=== PATIENT | female | born 1950 | race Caucasian/White ===

== ENCOUNTER 2025-04-23 07:13 | Day surgery (SDC) | payer MEDICARE, SELFPAY ==
--- OUTSIDE RECORDS SUMMARY | 2025-03-30 16:01 | XMS_ITS | Encounter Summary ---
Author Organization [facility] Address [address] [place] [address] Care Team Providers Care Port Engineer Name Role Phone Narcisa Cook MD Primary Care Provider Encounter Details Date Type Department Care Team (Late st Contact Info) Description 02/28/2018 Scanned Document [address] [phone] Narcisa Cook MD [address] [place] [id number] Social History Tobacco Use Types Packs/Day Years Used Date Smoking Tobacco: Never Smokeless Tobacco: Never Comments:caffeine use/ 1 cup of coffee daily, 1 cup of tea, occasional chocolate Alcohol Use Standard Drinks/Week Comments Yes 0 (1 standard drink = 0.6 oz pure alcohol) alcohol use/ rare intake of alcohol Comments No Sex and Gender Information Value Date Recorded Sex Assigned at Not on file Legal Sex Female 5:27 PM EDT Gender Identity Not on file Sexual Orientation Not on file documented as of this encounter Plan of Treatment Not on file documented as of this encounter Visit Diagnoses Not on filedocumented in this encounter Care Teams Port Engineer Relationship Specialty Start Date End Date Narcisa Cook MD [address] [place] [id number] PCP - General 08/15/15 08/12/19 documented as of this encounter
--- OUTSIDE RECORDS SUMMARY | 2025-03-30 16:01 | XMS_ITS | Encounter Summary ---
Author Organization [facility] Address [address] [place] [address] Care Team Providers Care Educational Guidance Counselor Name Role Phone Narcisa Cook MD Primary Care Provider [phone] Encounter Details Date Type Department Care Team (Late st Contact Info) Description 08/20/2017 Scanned Document [address] [phone] Narcisa Cook MD [address] [place] [id number] Social History Tobacco Use Types Packs/Day Years Used Date Smoking Tobacco: Never Comments:caffeine use/ 1 cup of [...] on filedocumented in this encounter Care Teams Educational Guidance Counselor Relationship Specialty [place] [address] [place] [id number] PCP - General 08/15/15 08/12/19 documented as of this encounter
--- OUTSIDE RECORDS SUMMARY | 2025-03-30 16:01 | XMS_ITS | Clinical Summary ---
Author Organization [facility] Address [address] [place] [address] Care Team Providers Care Roof Truss Machine Tender Name Role Phone Unavailable Primary Care Provider Unavailabl e Allergies Active Allergy Reactions Criticality Noted Date Comments Nitrofurantoin Swelling Medium 08/27/2015 Penicillins Rash/Dermatitis,Swelling Medium 08/27/2015 Sulfa Antibiotics Rash/Dermatitis Low 08/27/2015 Medications Multiple Vitamins-Minerals (MULTIVITAMINS) Chew Tab Multivitamins TABS ; Start Date: ; End Date: Active Vitamin D3 (CHOLECALICEROL) 2000 UNITS tablet Vitamin D3 2000 UNIT Oral Capsule ; Start Date: ; End Date: Active atorvastatin (LIPITOR) 10 MG tabletIndications: Hyperlipidemia, unspecified hyperlipidemia type TAKE 1 TABLET EVERY DAY 330 tablet 02/19/20 18 Active glucose blood test stripIndications:T ype 2 diabetes mellitus without complication, unspecified regional intermodal truck driver insulin use status Test blood sugar 3 times per week 100 each 1 03/26/20 18 Active naproxen (NAPROSYN) 500 MG tablet 06/23/20 18 Active atorvastatin (LIPITOR) 10 MG tabletIndications: Hyperlipidemia, unspecified hyperlipidemia type TAKE 1 TABLET BY MOUTH DAILY 90 tablet 1 11/11/20 18 Active citalopram (CeleXA) 20 MG tabletIndications: Anxiety state TAKE 1 TABLET BY MOUTH DAILY 90 tablet 1 11/11/20 18 Active metFORMIN (GLUCOPHAGE) 500 MG tabletIndications: Type 2 diabetes mellitus without complication, without long-term current use of insulin (HCC) TAKE 1 TABLET BY MOUTH TWO TIMES DAILY WITH MEALS 180 tablet 1 11/11/20 18 Active ALPRAZolam (XANAX) 0.5 MG tabletIndications: Anxiety state Take 1 tablet (0.5 mg total) by mouth 3 times daily (every 8 hours) as needed for anxiety. 30 tablet 12/23/19 19 Active Active Problems Problem Noted Date Diagnosed Date Type 2 diabetes mellitus without complication Assessment & Plan (01/07/2018 2:03 PM EST): DM follow up Griselda Valencia Comes in today for a DM follow up appointment. She has been checking her sugar 3 times per week(s) Home blood sugar records: fasting range: 120-140 Any episodes of hypoglycemia? no Griselda is compliant with her medications. Assessment & Plan (03/14/2017 10:50 AM EDT): DM follow up Griselda Valencia Comes in today for a DM follow up appointment. She has been checking her sugar 3 times per week(s) Home blood sugar records: fasting range: 103-110 Any episodes of hypoglycemia? no Griselda is compliant with her medications. Assessment & Plan (11/08/2016 10:22 AM EST): About 6 weeks ago started on metformin by jessie, and worked up to 2000 mg a day, checking sugar about 3x week and getting 90s . Has really worked on diet and now feels wierd and like her sugar is too low, and it was 70. 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 Hyperlipidemia 03/13/2014 Assessment & Plan (11/08/2016 10:23 AM EST): About a month ago was started on Crestor BiPAP, the insurance would not cover it and so therefore she switch to atorvastatin which she is absolutely tolerating Sleep apnea 03/13/2014 Assessment & Plan (01/07/2018 2:03 PM EST): Has dental appliance Immunizations Immunization Administration Dates Next Due H1N1 Inj 12/19/2009 Influenza (AFLURIA/FLUZONE) Inactivated/Split Quadrivalent with Preservative IM 09/06/2017 Influenza Inactivated/Split Preservative Free IM 09/27/2016,08/30/2015,09/06/2014,09/02,09/16/2012,08/29/2011,08/10/2010 ,08/29/2009,08/31/2008,09/04/2007 Pneumococcal Conjugate 13-Valent 01/07/2018 Pneumococcal Polysaccharide 23-Valent 01/22/2019 TD Preservative Free 01/03/2007 Tdap 09/27/2016 Zoster Vaccine Live/Attenuat ed (Zostavax) 03/20/2013 Family History Medical History Relation Name Comments Thyroid cancer Brother Colon cancer Father Hyperlipidemia Mother Hypertension Mother essential Macular degeneration Mother Relation Name Status Comments Brother Father Mother Social History Tobacco Use Types Packs/Day Years [...] on file Sexual Orientation Not on file Last Filed Vital Signs Vital Sign Reading Time Taken Comments Blood Pressure 144/73 01/22/2019 9:47 AM EST Pulse 79 01/22/2019 9:47 AM EST Temperature 36.6 ??C (97.9 ??F) 01/22/2019 9:47 AM ES T Respiratory Rate 16 01/22/2019 9:47 AM EST Oxygen Saturation - - Inhaled Oxygen Concentration - - Weight 69.4 kg (153 lb) 01/22/2019 9:47 AM EST Height 160 cm (5' 3 ) 01/22/2019 9:47 AM EST Body Mass Index 27.1 01/22/2019 9:47 AM EST Plan of Treatment Health Maintenance Due Date Last Done Comments Zoster (Shingles) Vaccine (2 of 3) 05/15/2013 03/20/2013 Hemoglobin A1C 07/19/2019 01/19/2019, 08/0 06/2018, 12/28/2017, Additional history exists Ophthalmology Exam 10/30/2019 10/30/2018 (P reviously Completed), 10/04/2017 (Previously Completed) Mammogram 11/18/2019 11/18/2018, 11/02, 11/13/2016, Additional history exists Foot Exam 01/15/2020 01/15/2019, 05/2018 (Previously Completed) Creatinine with GFR 01/19/2020 01/19/2019, 06/12/2018, 09/15/2016, Additional history exists Lipid Panel 01/19/2020 01/19/2019, 12/03, 09/15/2016, Additional history exists Microalbumin/Creatinine Ratio Urine 01/19/2020 01/19/2019, 12/28/2017, 09/27/2016 Colonoscopy 07/02/2020 07/02/2015 DXA Bone Density (Females,Ages 65 and older) 01/24/2021 01/24/2018 Influenza Vaccine 07/02/2024 09/06/2017, , 08/30/2015, Additional history exists COVID-19 Vaccine ( - 2023- season) 2024 DTaP/Tdap/Td Vaccines (2 - Td or Tdap) 09/27/2026 09/27/2016, 01/03/2007 RSV Vaccine 60 years and older and Patients (1 - 1-dose 75+ series) 2027 Hepatitis C Virus Screening Completed 04/06/2014 Pneumococcal Vaccines 50+ Completed 01/22/2019, 05/2018 Hepatitis B Vaccines Aged Out No long er eligible based on patient's age to complete this topic Procedures Procedure Name Priority Date/Time Associated Diagnosis Comments MICROALBUMIN, CREATININE, URINE, RANDOM Routine 01/19/2019 8:10 AM EST Type 2 diabetes mellitus without complication, without long-term current use of insulin (HCC) Other hyperlipidemia Vitamin D deficiency Benign hypertension HEMOGLOBIN A1C Routine 01/19/2019 8:10 AM EST Type 2 diabetes mellitus without complication, without long-term current use of insulin (HCC) Other hyperlipidemia Vitamin D deficiency Benign hypertension LIPID PANEL REFLEX DIRECT LDL Routine 01/19/2019 8:10 AM EST Type 2 diabetes mellitus without complication, without long-term current use of insulin (HCC) Other hyperlipidemia Vitamin D deficiency Benign hypertension COMPREHENSIVE METABOLIC PANEL Routine 01/19/2019 8:10 AM EST Type 2 diabetes mellitus without complication, without long-term current use of insulin (HCC) Other hyperlipidemia Vitamin D deficiency Benign hypertension MM MAMMOGRAM SCREENING-BILATERAL Routine 11/18/2018 9:47 AM EST DEXA BONE DENSITY HIP/PELVIS/SPINE W/FX EVAL Routine 01/24/2018 5:33 PM EST Menopause HEPATITIS C VIRUS (HCV) ANTIBODY Routine 04/06/2014 12:00 AM EDT from Last 3 Months or Most Recently Relevant to Health Maintenance Results * (ABNORMAL) Lipid Panel Reflex Direct LDL ([facility]) (01/19/2019 8:10 AM EST) Cholesterol, Total 156 <200 mg/dL [facility] Cholesterol, HDL 37(L) >50 mg/dL [facility] Triglycerides 120 <150 mg/dL [facility] LDL Cholesterol 97 mg/dL (calc) [facility] Comment: Reference range: <100 Desirable range <100 mg/dL for primary prevention; ?? <70 mg/dL for patients with CHD or diabetic patients with > or = 2 CHD risk factors. LDL-C is now calculated using the Syed-Julian calculation, which is a validated novel method providing better accuracy than the Friedewald equation in the estimation of LDL-C. Syed SS et al. CARLO. 2013;310(19): 8324-0586 (http://education.Securens.Genomatica/faq/UBC161) Cholesterol/HDL Ratio 4.2 <5.0 (calc) [facility] Non HDL Chol. (LDL+VLDL) 119 <130 mg/dL (calc) [facility] Comment: For patients with diabetes plus 1 major ASCVD risk factor, treating to a non-HDL-C goal of <100 mg/dL (LDL-C of <70 mg/dL) is considered a therapeutic option. Blood specimen (specimen) 01/19/2019 8:10 AM EST 01/19/2019 8:11 AM EST Narrative [facility] - 01/20/2019 1:17 PM EST FASTING:YES FASTING: YES Resulting Agency Comment Performing Organization Information: ?Site ID: [id number] ?Name: [facility] [employer] ?Address: [address] [place] [address], [place] [address] ?Director: Gold Krishnamurthy MD us Jessie Woodson APRN LAB BLOOD ORDERABLES Final Resu lt [facility] [address] [place] [address], [place] [address] * Microalbumin, Creatinine, Urine, Random (01/19/2019 8:10 AM EST) Creatinine, Urine, Random 110 20 - 275 mg/dL [facility] Microalbumin, Urine, Random 0.5 See Note: mg/dL [facility] Comment: Reference Range: Reference Range Not established Microalbumin/Creat inine Ratio 5 <30 mcg/mg creat [facility] Comment: The ADA defines abnormalities in albumin excretion as follows: Category ? Result (mcg/mg creatinine) Normal ?<30 Microalbuminuria ? 30-299 Clinical albuminuria ?? > OR = 300 The ADA recommends that at least two of three specimens collected within a 3-6 month period be abnormal before considering a patient to be within a diagnostic category. Urine 01/19/2019 8:10 AM EST 01/19/2019 8:11 AM EST Narrative [facility] - 01/20/2019 1:17 PM EST FASTING:YES FASTING: YES Resulting Agency Comment Performing Organization Information: ?Site ID: [id number] ?Name: [employer] ?Address: [address] [place] [address], [place] [address] ?Director: Gold Krishnamurthy MD us Jessie Woodson APRN URINE ORDERABLES Final Result Performing Organization Address [facility] de Phone Number [facility] [address] [address] * (ABNORMAL) Hemoglobin A1c (01/19/2019 8:10 AM EST) Hemoglobin A1C 7.1(H) <5.7 % of total Hgb [facility] Comment: For someone without known diabetes, a hemoglobin A1c value of 6.5% or greater indicates that they may have diabetes and this should be confirmed with a follow-up test. For someone with known diabetes, a value <7% indicates that their diabetes is well controlled and a value greater than or equal to 7% indicates suboptimal control. A1c targets should be individualized based on duration of diabetes, age, comorbid conditions, and other considerations. Currently, no consensus exists regarding use of hemoglobin A1c for diagnosis of diabetes for children. ?? Blood specimen (specimen) Blood specimen / Unknown 01/19/2019 8:10 AM EST 01/19/2019 8:11 AM EST Narrative [facility] - 01/20/2019 1:17 PM EST FASTING:YES FASTING: YES Resulting Agency Comment Performing Organization Information: ?Site ID: [id number] ?Name: [facility] [employer] ?Address: [address] [place] [id number] ?Director: Gold Krishnamurthy MD Jessie Woodson APRN LAB BLOOD ORDERABLES Final Resu lt Performing Organization Address [facility] Co de Phone Number [facility] [address], [place] [address] * (ABNORMAL) Comprehensive Metabolic Panel (01/19/2019 8:10 AM EST) Glucose 132(H) 65 - 99 mg/dL [facility] Comment: ? Fasting reference interval For someone without known diabetes, a glucose value >125 mg/dL indicates that they may have diabetes and this should be confirmed with a follow-up test. Blood Urea Nitrogen (BUN) 15 7 - 25 mg/dL [facility] Creatinine 0.62 0.50 - 0.99 mg/dL [facility] Comment: For patients >49 years of age, the reference limit for Creatinine is approximately 13% higher for people identified as -Tuvaluan. eGFR Non- 94 > OR = 60 mL/min/1 .73m2 [facility] eGFR 109 > OR = 60 mL/min/1 .73m2 [facility] BUN/Creatinine Ratio NOT APPLICABLE 6 - 22 (calc) [facility] Sodium 139 135 - 146 mmol/L [facility] Potassium 4.2 3.5 - 5.3 mmol/L [facility] Chloride 103 98 - 110 mmol/L [facility] CO2 28 20 - 32 mmol/L [facility] Calcium 9.6 8.6 - 10.4 mg/dL [facility] Protein, Total 6.9 6.1 - 8.1 g/dL [facility] Albumin 4.5 3.6 - 5.1 g/dL [facility] Globulin 2.4 1.9 - 3.7 g/dL (calc) [facility] Albumin/Globulin Ratio 1.9 1.0 - 2.5 (calc) [facility] Bilirubin, Total 0.6 0.2 - 1.2 mg/dL [facility] Alkaline Phosphatase 82 33 - 130 U/L [facility] Aspartate Aminotrans (AST) 15 10 - 35 U/L [facility] Alanine Aminotrans (ALT) 14 6 - 29 U/L [facility] Blood specimen (specimen) Blood specimen / Unknown 01/19/2019 8:10 AM EST 01/19/2019 8:11 AM EST Narrative [facility] - 01/20/2019 1:17 PM EST FASTING:YES FASTING: YES Resulting Agency Comment Performing Organization Information: ?Site ID: [id number] ?Name: [facility] [employer] [employer] ?Address: [address] [place] [address], [place] [address] ?Director: Gold Krishnamurthy MD us Jessie Woodson APRN LAB BLOOD ORDERABLES Final Resu lt [facility] [address] [facility] 3rd Floor, [place] [address] * MM Mammogram screening-Bilateral (11/18/2018 9:47 AM EST) Anatomical Region Laterality Modality Breast Bilateral Mammography 11/14/2018 7:00 AM EST 11/14/2018 7:00 AM EST Impressions 11/18/2018 9:47 AM EST There is no mammographic evidence of malignancy. Routine follow-up mammogram in 1 year is recommended. The patient will receive a lay summary of the results of this breast imaging exam. Lay summaries for mammography examinations will also identify the patients personal breast tissue composition as required by state law. BIRADS Category 1: Negative Thank you for referring your patient to us, Violetta Harris MD [phone] (Electronically Signed - 11/18/2018 09:47) Copy: INÉS EMERY MD [facility]-[address] [address] Narrative 11/18/2018 9:47 AM EST HISTORY: Patient is 68 years old and is seen for screening. The patient has no personal history of breast or ovarian cancer. The patient has no family history of breast cancer. FILMS COMPARED: The present examination has been compared to prior imaging studies dated 11/13/2017 and 11/12/2016. MAMMOGRAM FINDINGS: The following digital mammographic views were obtained: bilateral craniocaudal, bilateral mediolateral oblique. There are scattered fibroglandular densities. (ACR BIRADS density Category b) * No suspicious masses, calcifications or other abnormalities are seen in either breast. ??There are no significant changes from the prior study. Computer-aided detection was utilized by the radiologist in the interpretation of this examination. Procedure Note Violetta Harris MD - 11/18/2018 HISTORY: Patient is 68 years old and is seen for screening. The patient has no personal history of breast or ovarian cancer. The patient has no family history of breast cancer. FILMS COMPARED: The present examination has been compared to prior imaging studies dated101/14/2017 and 11/12/2016. MAMMOGRAM FINDINGS: The following digital mammographic views were obtained: bilateralcraniocaudal, bilateral mediolateral oblique. There are scattered fibroglandular densities. (ACR BIRADS density Categoryb) * No suspicious masses, calcifications or other abnormalities are seen ineither breast. There are no significant changes from the prior study. Computer-aided detection was utilized by the radiologist in theinterpretation of this examination. IMPRESSION: There is no mammographic evidence of malignancy. Routine follow-up mammogram in 1 year is recommended. The patient will receive a lay summary of the results of this breastimaging exam. Lay summaries for mammography examinations will alsoidentify the patients personal breast tissue composition as required [facility] law. BIRADS Category 1: Negative Thank you for referring your patient to us, Violetta Harris MD [phone] (Electronically Signed - 11/18/2018 09:47) Copy: INÉS EMERY MD [address] [address] us Generic Provider IMG MAMMOGRAPHY ORDERABLES [place] l Result * DEXA Bone density-Hip/pelvis/spine w/fx eval (01/24/2018 5:33 PM EST) Anatomical Region Laterality Modality Digital Radiogra phy 01/23/2018 11:0 0 AM EST 01/23/2018 11:00 AM EST Impressions 01/24/2018 5:33 PM EST 1. DIAGNOSIS: Osteopenia based on the lowest T-score value of -1.9 in the femoral neck applying World Health Organization criteria. 2. 10-YEAR FRACTURE RISK PREDICTION, FRAX: Major osteoporotic fracture (clinical spine, forearm, hip or shoulder) 10.4%. Hip fracture 1.5%. RECOMMENDATIONS: 1. Treatment Recommendations: NOF guidelines recommend consideration for treatment in postmenopausal women and men age 50 and older presenting with the following: -A hip or vertebral (clinical or morphometric) fracture. -T-score less than or equal to -2.5 at the femoral neck or spine after appropriate evaluation to exclude secondary causes. -Low bone mass at the hip or spine and a 10-year fracture probability by FRAX of greater than or equal to 3% for hip fracture or greater than or equal to 20% for major osteoporotic fracture based on the [place] adapted WHO algorithm. 2. Other Recommendations: All treatment decisions require clinical judgment and consideration of individual patient factors, including patient preferences, comorbidities, previous drug use, risk factors not captured in the FRAX model (e.g. frailty, falls, vitamin D deficiency, increased bone turnover, interval significant decline in bone density) and possible under or overestimation of fracture risk by FRAX. 3. Future Scan Recommendation: People with diagnosed cases of osteoporosis or at high risk for fracture should have regular bone mineral density tests. For patients eligible for Medicare, routine testing is allowed once every 2 years. The testing frequency can be increased to one year for patients who have rapidly progressing disease, those who are receiving or discontinuing medical therapy to restore bone mass, or have additional risk factors. Thank you for referring your patient to us, Eyal Garcia MD [phone] (Electronically Signed - 01/24/2018 17:33) Narrative 01/24/2018 5:33 PM EST EXAMINATION: BONE DENSITOMETRY CLINICAL INDICATION: Asymptomatic menopausal state. COMPARISON: Previous BD dated 10/09/2014 and baseline BD dated 02/05/2008. TECHNIQUE: Dual-energy x-ray absorptiometry was performed of the lumbar spine and left hip. The images are of good technical quality. Summary results are attached. FINDINGS: AP SPINE L1-L4: Current: BMD 1.050 g/cm2, Z-score 0.4, T-score -1.2, osteopenia, 1.3% increase from previous, 0.3% decrease from baseline (<5% change is not significant). Prior: BMD 1.037 g/cm2. Baseline: BMD 1.053 g/cm2. LEFT FEMUR, NECK: Current: BMD 0.768 g/cm2, Z-score -0.5, T-score -1.9, osteopenia. Prior: BMD 0.762 g/cm2. Baseline: BMD 0.834 g/cm2. LEFT FEMUR, TOTAL: Current: BMD 0.791 g/cm2, Z-score -0.5, T-score -1.7, osteopenia, 4.8% decrease from previous, 7.8% decrease from baseline (<5% change is not significant). Prior: BMD 0.831 g/cm2. Baseline: BMD 0.858 g/cm2. IDENTIFIED RISK FACTORS: Menopause. HISTORY OF FRACTURE: None listed. MEDICATIONS: Calcium supplement or multivitamin. Vitamin D. Procedure Note Eyal Garcia MD - 01/24/2018 EXAMINATION: BONE DENSITOMETRY CLINICAL INDICATION: Asymptomatic menopausal state. COMPARISON: Previous BD dated 10/09/2014 and baseline BD dated 02/05/2008. TECHNIQUE: Dual-energy x-ray absorptiometry was performed of the lumbar spine andleft hip. The images are of good technical quality. Summary results areattached. FINDINGS: AP SPINE L1-L4: Current: BMD 1.050 g/cm2, Z-score 0.4, T-score -1.2, osteopenia, 1.3% increase from previous, 0.3% decrease from baseline (<5% change is not significant). Prior: BMD 1.037 g/cm2. Baseline: BMD 1.053 g/cm2. LEFT FEMUR, NECK: Current: BMD 0.768 g/cm2, Z-score -0.5, T-score -1.9, osteopenia. Prior: BMD 0.762 g/cm2. Baseline: BMD 0.834 g/cm2. LEFT FEMUR, TOTAL: Current: BMD 0.791 g/cm2, Z-score -0.5, T-score -1.7, osteopenia, 4.8% decrease from previous, 7.8% decrease from baseline (<5% change is not significant). Prior: BMD 0.831 g/cm2. Baseline: BMD 0.858 g/cm2. IDENTIFIED RISK FACTORS: Menopause. HISTORY OF FRACTURE: None listed. MEDICATIONS: Calcium supplement or multivitamin. Vitamin D. IMPRESSION: 1. DIAGNOSIS: Osteopenia based on the lowest T-score value of -1.9 inthe femoral neck applying World Health Organization criteria. 2. 10-YEAR FRACTURE RISK PREDICTION, FRAX: Major osteoporotic fracture (clinical spine, forearm, hip or shoulder) 10.4%. Hip fracture 1.5%. RECOMMENDATIONS: 1. Treatment Recommendations: NOF guidelines recommend consideration for treatment in postmenopausal women and men age 50 and older presentingwith the following: -A hip or vertebral (clinical or morphometric) fracture. -T-score less than or equal to -2.5 at the femoral neck or spine after appropriate evaluation to exclude secondary causes. -Low bone mass at the hip or spine and a 10-year fracture probability byFRAX of greater than or equal to 3% for hip fracture or greater than or equalto 20% for major osteoporotic fracture based on the [place] adapted WHOalgorithm. 2. Other Recommendations: All treatment decisions require clinicaljudgment and consideration of individual patient factors, including patient preferences, comorbidities, previous drug use, risk factors not capturedin the FRAX model (e.g. frailty, falls, vitamin D deficiency, increasedbone turnover, interval significant decline in bone density) and possible underor overestimation of fracture risk by FRAX. 3. Future Scan Recommendation: People with diagnosed cases of osteoporosisor at high risk for fracture should have regular bone mineral density tests.For patients eligible for Medicare, routine testing is allowed once every 2 years. The testing frequency can be increased to one year for patientswho have rapidly progressing disease, those who are receiving ordiscontinuing medical therapy to restore bone mass, or have additional risk factors. Thank you for referring your patient to us, Eyal Garcia MD [phone] (Electronically Signed - 01/24/2018 17:33) Inés Emery MD IMG DXA ORDERABLES Final Res ult * Hepatitis C Antibody (04/06/2014 12:00 AM EDT) Hepatitis C Antibody 0.07 0.00 - 0.79 S/[facility] CONVERSION Comment:NONREACTIVE 04/06/2014 Inés Emery MD LAB BLOOD ORDERABLES Final R esult [facility] CONVERSION from Last 3 Months or Most Recently Relevant to Health Maintenance Insurance [facility] MEDICARE
--- OUTSIDE RECORDS SUMMARY | 2025-03-30 16:01 | XMS_ITS | Encounter Summary ---
Author Organization [facility] Address [address] [place] [address] Care Team Providers Care Dietary Server Name Role Phone Narcisa Cook MD Primary Care Provider [phone] Encounter Details Date Type Department Care Team (Late st Contact Info) Description 03/31/2018 Scanned Document [address] [phone] Provider, Generic Social History Tobacco Use Types Packs/Day Years [...] on filedocumented in this encounter Care Teams Dietary Server Relationship Specialty Start Date End Date Narcisa Cook MD [address] [place] [phone] PCP - General 08/15/15 08/12/19 documented as of this encounter
--- OUTSIDE RECORDS SUMMARY | 2025-03-30 16:01 | XMS_ITS | Encounter Summary ---
Author Organization [facility] Address [address] [place] [address] Care Team Providers Care Piece Cutter Name Role Phone Narcisa Cook MD Primary Care Provider Encounter Details Date Type Department Care Team (Late st Contact Info) Description 06/03/2018 Scanned Document [address] [phone] Narcisa Cook MD [address] [place] [address] [phone] Social History Tobacco Use Types Packs/Day Years [...] on filedocumented in this encounter Care Teams Piece Cutter Relationship Specialty Start Date End Date Narcisa Cook MD [address] [place] [address] PCP - General 08/15/15 08/12/19 documented as of this encounter
--- OUTSIDE RECORDS SUMMARY | 2025-03-30 16:01 | XMS_ITS | Encounter Summary ---
Author Organization [facility] Address [address] [facility] [address] [place] [address] Phone Care Team Providers Care Director Global Name Role Phone Jennifer Sherwood MD Primary Care Provider + Sophie Noble MD Primary Care Provider Encounter Details Date Type Department Care Team (Late st Contact Info) Description 01/12/2021 Procedure Pass [address] [place] [address] Social History Tobacco Use Types Packs/Day Years Used Date Smoking Tobacco: Never Assessed Sex and Gender Information Value Date Recorded Sex Assigned at Not on file Gender Identity Not on file Sexual Orientation Not on file documented as of this encounter Plan of Treatment Not on file documented as of this encounter Visit Diagnoses Not on filedocumented in this encounter Care Teams Director Global Relationship Specialty Start Date End Date Jennifer Sherwood MD [address] [place] [address] PCP - General Family Medicine 08/17/19 01/18/21 Sophie Noble MD [address] [place] [address] PCP - General Family Medicine 01/19/21 documented as of this encounter Additional Source Comments The information contained in this document represents components of the legal health record. It is not the complete legal health record.[facility]
--- OUTSIDE RECORDS SUMMARY | 2025-03-30 16:01 | XMS_ITS | Encounter Summary ---
Author Organization [facility] Address [address] [address] Phone Care Team Providers Care Equities Trader Name Role Phone Jennifer Sherwood MD Primary Care Provider + Sophie Noble MD Primary Care Provider Encounter Details Date Type Department Care Team (Late st Contact Info) Description 08/24/2019 Ancillary Orders [facility],Outside Imaging [address] [place] [address] System, Provider Not In, [facility] [address] [address] Social History Tobacco Use Types Packs/Day Years Used Date Smoking Tobacco: Never Assessed Sex and Gender Information Value Date Recorded Sex Assigned at Not on file Gender Identity Not on file Sexual Orientation Not on file documented as of this encounter Plan of Treatment Not on file documented as of this encounter Results * Mammogram Outside (No Interpretation) (10/24/2015 12:00 AM EST) Narrative SYSTEMGENERATED, DOCUMENTATION - 08/24/2019 10:45 AM EDT This study is for PACS storage only and not for interpretation. Provider Not In System PhD IMG OUTSIDE I MAGING W/OUT INTERPRETATION documented in this encounter Visit Diagnoses Not on filedocumented in this encounter Care Teams Equities Trader Relationship Specialty Start Date End Date Jennifer Sherwood MD [address] [place] [address] [email or web address] PCP - General Family Medicine 08/17/19 01/18/21 Sophie Noble MD [address] [place] [address] PCP - General Family Medicine 01/19/21 documented as of this encounter Additional Source Comments The information contained in this document represents components of the legal health record. It is not the complete legal health record.[facility]
--- OUTSIDE RECORDS SUMMARY | 2025-03-30 16:01 | XMS_ITS | Encounter Summary ---
Author Organization [facility] Address [address] [place] [address] Care Team Providers Care Cleaner Laboratory Equipment Name Role Phone Narcisa Cook MD Primary Care Provider [phone] Encounter Details Date Type Department Care Team (Late st Contact Info) Description 04/14/2018 Scanned Document [address] [phone] Provider, Generic Social History Tobacco Use Types [...] on filedocumented in this encounter Care Teams Cleaner Laboratory Equipment Relationship Specialty Start Date End Date Narcisa Cook MD [address] [place] [address] [phone] PCP - General 08/15/15 08/12/19 documented as of this encounter
--- OUTSIDE RECORDS SUMMARY | 2025-03-30 16:01 | XMS_ITS | Encounter Summary ---
Author Organization [facility] Address [address] [place] [address] Care Team Providers Care Linux Network Administrator Name Role Phone Narcisa Cook MD Primary Care Provider Encounter Details Date Type Department Care Team (Late st Contact Info) Description 10/29/2018 Scanned Document [address] [phone] Provider, Generic Social History Tobacco Use Types [...] on filedocumented in this encounter Care Teams Linux Network Administrator Relationship Specialty Start Date End Date Narcisa Cook MD [address] [place] [address] [phone] PCP - General 08/15/15 08/12/19 documented as of this encounter
--- OUTSIDE RECORDS SUMMARY | 2025-03-30 16:01 | XMS_ITS | Encounter Summary ---
Author Organization [facility] Address [address] [place] [address] Care Team Providers Care Rn Heart Name Role Phone Narcisa Cook MD Primary Care Provider Encounter Details Date Type Department Care Team (Late st Contact Info) Description 10/30/2016 Scanned Document [address] [phone] Provider, Generic Social History Tobacco Use Types [...] on filedocumented in this encounter Care Teams Rn Heart Relationship Specialty Start Date End Date Narcisa Cook MD [address] [place] [address] PCP - General 08/15/15 08/12/19 documented as of this encounter
--- OUTSIDE RECORDS SUMMARY | 2025-03-30 16:01 | XMS_ITS | Encounter Summary ---
Author Organization [facility] Address [address] [place] [address] Care Team Providers Care Counter Checker Name Role Phone Narcisa Cook MD Primary Care Provider [phone] Reason for Visit * Reason Comments Medication Refill Encounter Details Date Type Department Care Team (Late st Contact Info) Description 11/11/[address] [phone] Narcisa Cook MD [address] [place] [address] Hyperlipidemia, unspecified hyperlipidemia type; Anxiety state; Type 2 diabetes mellitus without complication, without long-term current use of insulin (HCC) Social History Tobacco Use Types Packs/Day Years [...] documented as of this encounter Visit Diagnoses Diagnosis Hyperlipidemia, unspecified hyperlipidemia type Anxiety state Anxiety state, unspecified Type 2 diabetes mellitus without complication, without long-term current use of insulin (HCC) documented in this encounter Care Teams Counter Checker Relationship Specialty Start Date End Date Narcisa Cook MD [address] [place] [address] PCP - General 08/15/15 08/12/19 documented as of this encounter
--- OUTSIDE RECORDS SUMMARY | 2025-03-30 16:01 | XMS_ITS | Encounter Summary ---
Author Organization [facility] Address [address] [facility] [address] [place] [address] Phone Care Team Providers Care Weight Yardage Checker Name Role Phone Jennifer Sherwood MD Primary Care Provider + Sophie Noble MD Primary Care Provider Encounter Details Date Type Department Care Team (Late st Contact Info) Description 08/14/2019 Ancillary Orders Virtual Department [address] [place] [address] Cheryl Orozco PA [address] [place] [address] Visit for screening mammogram Social History Tobacco Use Types Packs/Day Years Used Date Smoking Tobacco: Never Assessed Sex and Gender Information Value Date Recorded Sex Assigned at Not on file Gender Identity Not on file Sexual Orientation Not on file documented as of this encounter Plan of Treatment Not on file documented as of this encounter Results * BI MAMMOGRAM SCREENING WITH TOMOSYNTHESIS WITH CAD (BILATERAL) (10/26/2019 9:11 AM EST) Anatomical Region Laterality Modality Breast Left, Breast Right, Breast Bilateral Bila teral Mammography 10/26/2019 5:52 PM EST Impressions 10/26/2019 5:56 PM EST BILATERAL BREASTS: Negative, no evidence of malignancy. Normal interval follow- up is recommended in 12 months. Bi-RADS: BI-RADS CATEGORY: 1 - Negative. DENSITY: ??There are scattered fibroglandular densities. POS - CDHMAMA Narrative 10/26/2019 5:56 PM EST STUDY: Bilateral screening mammography with tomosynthesis and CAD TECHNIQUE: Bilateral full-field digital screening mammography is obtained and read in conjunction with computer-aided detection. ??Tomosynthesis as well as 2-D C view imaging were obtained. ?? COMPARISON: Comparison made to multiple prior, most recent November 14, 2018, and most remote October 04, 2014. BREAST COMPOSITION: There are scattered areas ??of ??fibroglandular density BILATERAL BREASTS: No significant masses, calcifications or other abnormalities are seen. Procedure Note She Velásquez MD - 10/26/2019 STUDY: Bilateral screening mammography with tomosynthesis and CAD TECHNIQUE: Bilateral full-field digital screening mammography is obtainedand read in conjunction with computer-aided detection. Tomosynthesis aswell as 2-D C view imaging were obtained. COMPARISON: Comparison made to multiple prior, most recent November, and most remote October 04, 2014. BREAST COMPOSITION: There are scattered areas of fibroglandulardensity BILATERAL BREASTS: No significant masses, calcifications or otherabnormalities are seen. IMPRESSION: BILATERAL BREASTS: Negative, no evidence of malignancy. Normal intervalfollow-up is recommended in 12 months. Bi-RADS: BI-RADS CATEGORY: 1 - Negative. DENSITY: There are scattered fibroglandular densities. POS - CDHMAMA Cheryl PEARSON IMG MG EXAMS documented in this encounter Visit Diagnoses Diagnosis Visit for screening mammogram Visit for screening mammogram documented in this encounter Care Teams Weight Yardage Checker Relationship Specialty Start Date End Date Jennifer Sherwood MD [address] [place] [phone] PCP - General Family Medicine 08/17/19 01/18/21 Sophie Noble MD [address] [place] [address] PCP - General Family Medicine 01/19/21 documented as of this encounter Additional Source Comments The information contained in this document represents components of the legal health record. It is not the complete legal health record.[facility]
--- OUTSIDE RECORDS SUMMARY | 2025-03-30 16:01 | XMS_ITS | Encounter Summary ---
Author Organization [facility] Address [address] [facility] [address] [place] [address] Phone Care Team Providers Care Cleaner Touch Up Worker Name Role Phone Jennifer Sherwood MD Primary Care Provider + Sophie Noble MD Primary Care Provider Encounter Details Date Type Department Care Team (Late st Contact Info) Description 01/12/2021 Ancillary Orders Virtual Department [address] [place] [address] Sophie Noble MD [address] [place] [address] Breast screening Social History Tobacco Use Types Packs/Day Years Used Date Smoking Tobacco: Never Assessed Sex and Gender Information Value Date Recorded Sex Assigned at Not on file Gender Identity Not on file Sexual Orientation Not on file documented as of this encounter Plan of Treatment Not on file documented as of this encounter Results * BI MAMMOGRAM SCREENING WITH TOMOSYNTHESIS WITH CAD (BILATERAL) (01/19/2021 10:58 AM EST) Anatomical Region Laterality Modality Breast Left, Breast Right, Breast Bilateral Bila teral Mammography 01/19/2021 11:3 1 AM EST Impressions 01/19/2021 11:33 AM EST No findings suspicious for malignancy are identified. In the absence of a worrisome palpable abnormality, annual screening mammography is recommended. BI-RADS CATEGORY: ??1 - Negative. DENSITY: ??There are scattered fibroglandular densities. Narrative 01/19/2021 11:33 AM EST COMPARISON: 10/04/2014 through 10/26/2019 Bilateral 3-D tomosynthesis with 2-D reconstructions in the CC and MLO projection. ??Computer-aided detection system also utilized. No new mass, asymmetry, architectural distortion or suspicious calcifications have become apparent on either side. Procedure Note Wander Fletcher MD - 01/19/2021 COMPARISON: 10/04/2014 through 10/26/2019 Bilateral 3-D tomosynthesis with 2-D reconstructions in the CC and MLOprojection. Computer-aided detection system also utilized. No new mass, asymmetry, architectural distortion or suspiciouscalcifications have become apparent on either side. IMPRESSION: No findings suspicious for malignancy are identified. In the absence of aworrisome palpable abnormality, annual screening mammography isrecommended. BI-RADS CATEGORY: 1 - Negative. DENSITY: There are scattered fibroglandular densities. Sophie Noble MD IMG MG EXAMS documented in this encounter Visit Diagnoses Diagnosis Breast screening Breast screening, unspecified Breast screening Breast screening, unspecified documented in this encounter Care Teams Cleaner Touch Up Worker Relationship Specialty Start Date End Date Jennifer Sherwood MD [address] [place] [address] [email or web address] PCP - General Family Medicine 08/17/19 01/18/21 Sophie Noble MD [address] [place] [address] PCP - General Family Medicine 01/19/21 documented as of this encounter Additional Source Comments The information contained in this document represents components of the legal health record. It is not the complete legal health record.[facility]
--- OUTSIDE RECORDS SUMMARY | 2025-03-30 16:01 | XMS_ITS | Encounter Summary ---
Author Organization [facility] Address [address] [address] Phone Care Team Providers Care Cryptologic Technician Operator/Analyst Name Role Phone Jennifer Sherwood MD Primary Care Provider + Sophie Noble MD Primary Care Provider Encounter Details Date Type Department Care Team (Late st Contact Info) Description 08/24/2019 Ancillary Orders [facility],Outside Imaging [address] [place] [address] System, Provider Not In, PhD Partners [address] [address] Social History Tobacco Use Types Packs/Day Years Used Date Smoking Tobacco: Never Assessed Sex and Gender Information Value Date Recorded Sex Assigned at Not on file Gender Identity Not on file Sexual Orientation Not on file documented as of this encounter Plan of Treatment Not on file documented as of this encounter Results * Mammogram Outside (No Interpretation) (10/04/2014 12:00 AM EST) Narrative SYSTEMGENERATED, DOCUMENTATION - 08/24/2019 10:46 AM EDT This study is for PACS storage only and not for interpretation. Provider Not In System PhD IMG OUTSIDE I MAGING W/OUT INTERPRETATION documented in this encounter Visit Diagnoses Not on filedocumented in this encounter Care Teams Cryptologic Technician Operator/Analyst Relationship Specialty Start Date End Date Jennifer Sherwood MD [address] [place] [address] [email or web address] PCP - General Family Medicine 08/17/19 01/18/21 Sophie Noble MD [address] [place] [address] PCP - General Family Medicine 01/19/21 documented as of this encounter Additional Source Comments The information contained in this document represents components of the legal health record. It is not the complete legal health record.[facility]
--- OUTSIDE RECORDS SUMMARY | 2025-03-30 16:01 | XMS_ITS | Encounter Summary ---
Author Organization [facility] Address [address] [address] Phone Care Team Providers Care Administrative Processor Name Role Phone Jennifer Sherwood MD Primary Care Provider + Sophie Noble MD Primary Care Provider Encounter Details Date Type Department Care Team (Late st Contact Info) Description 08/24/2019 Ancillary Orders [facility],Outside Imaging [address] [place] [address] System, Provider Not In, PhD Partners [address] [address] Social History Tobacco Use Types Packs/Day Years Used Date Smoking Tobacco: Never Assessed Sex and Gender Information Value Date Recorded Sex Assigned at Not on file Gender Identity Not on file Sexual Orientation Not on file documented as of this encounter Plan of Treatment Not on file documented as of this encounter Results * Mammogram Outside (No Interpretation) (11/12/2016 12:00 AM EST) Narrative SYSTEMGENERATED, DOCUMENTATION - 08/24/2019 10:44 AM EDT This study is for PACS storage only and not for interpretation. Provider Not In System PhD IMG OUTSIDE I MAGING W/OUT INTERPRETATION documented in this encounter Visit Diagnoses Not on filedocumented in this encounter Care Teams Administrative Processor Relationship Specialty Start Date End Date Jennifer Sherwood MD [address] [place] [address] [email or web address] PCP - General Family Medicine 08/17/19 01/18/21 Sophie Noble MD [address] [place] [address] PCP - General Family Medicine 01/19/21 documented as of this encounter Additional Source Comments The information contained in this document represents components of the legal health record. It is not the complete legal health record.[facility]
--- OUTSIDE RECORDS SUMMARY | 2025-03-30 16:01 | XMS_ITS | Encounter Summary ---
Author Organization [facility] Address [address] [place] [address] Care Team Providers Care Rn Shift Mgr Name Role Phone Narcisa Cook MD Primary Care Provider [phone] Reason for Visit * Reason Comments Medication Refill Encounter Details Date Type Department Care Team (Late st Contact Info) Description 02/14/[address] [phone] Narcisa Cook MD [address] [place] [phone] Anxiety state Social History Tobacco Use Types Packs/Day Years [...] as of this encounter Visit Diagnoses Diagnosis Anxiety state Anxiety state, unspecified documented in this encounter Care Teams Rn Shift Mgr Relationship Specialty Start Date End Date Narcisa Cook MD [address] [place] [address] PCP - General 08/15/15 08/12/19 documented as of this encounter
--- OUTSIDE RECORDS SUMMARY | 2025-03-30 16:01 | XMS_ITS | Encounter Summary ---
Author Organization [facility] Address [address] [place] [address] Care Team Providers Care Epic Cupid Analyst Name Role Phone Narcisa Cook MD Primary Care Provider [phone] Encounter Details Date Type Department Care Team (Late st Contact Info) Description 10/14/2017 Scanned Document [address] [phone] Provider, Generic Social History Tobacco Use Types [...] on filedocumented in this encounter Care Teams Epic Cupid Analyst Relationship Specialty Start Date End Date Narcisa Cook MD [address] [place] [phone] PCP - General 08/15/15 08/12/19 documented as of this encounter
--- OUTSIDE RECORDS SUMMARY | 2025-03-30 16:01 | XMS_ITS | Encounter Summary ---
Author Organization [facility] Address [address] [place] [address] Care Team Providers Care Cattle Examiner Name Role Phone Narcisa Cook MD Primary Care Provider [phone] Encounter Details Date Type Department Care Team (Late st Contact Info) Description 08/18/2017 Scanned Document [address] [phone] Narcisa Cook MD [address] [place] [address] Social History Tobacco Use Types Packs/Day Years [...] on filedocumented in this encounter Care Teams Cattle Examiner Relationship Specialty [place] [address] [place] [address] PCP - General 08/15/15 08/12/19 documented as of this encounter
--- OUTSIDE RECORDS SUMMARY | 2025-03-30 16:01 | XMS_ITS | Encounter Summary ---
Author Organization [facility] Address [address] [place] [address] Care Team Providers Care Scouring Train Operator Name Role Phone Narcisa Cook MD Primary Care Provider Reason for Visit * Reason Onset Date Comments Form 08/18/2017 Encounter Details Date Type Department Care Team (Late st Contact Info) Description 08/18/[address] [phone] Narcisa Cook MD [address] [place] [address] [phone] Form Social History Tobacco Use Types Packs/Day Years [...] on file documented as of this encounter Miscellaneous Notes * Telephone Encounter - Mary Alvarenga MA - 08/28/2017 10:31 AM EDT tct pt states she did not received form that was mailed previously, will mail form again. * Telephone Encounter - Ana Lilia Hunt - 08/27/2017 5:20 PM EDT Patient is calling to find out the status of the form. Please call pt back at [phone]. * Telephone Encounter - Mary Alvarenga MA - 08/19/2017 2:[address] in [address] cook's bin for completion. * Telephone Encounter - Ana Lilia Hunt - 08/18/2017 10:26 AM EDT Patient dropped off Physician Activity Recommendations/Medical Clearance Form. Scanned blank copy into media and put in [place] bin. Please call pt when this is all set at [phone] and mail a copy to her at: [address] [place] [address] documented in this encounter Plan of Treatment Not on file documented as of this encounter Visit Diagnoses Not on filedocumented in this encounter Care Teams Scouring Train Operator Relationship Specialty Start Date End Date Narcisa Cook MD [address] [place] [address] PCP - General 08/15/15 08/12/19 documented as of this encounter
--- OUTSIDE RECORDS SUMMARY | 2025-03-30 16:01 | XMS_ITS | Encounter Summary ---
Author Organization [facility] Address [address] [address] Phone Care Team Providers Care Certified Medicine Aide Name Role Phone Jennifer Sherwood MD Primary Care Provider + Sophie Noble MD Primary Care Provider Encounter Details Date Type Department Care Team (Late st Contact Info) Description 08/24/2019 Ancillary Orders [facility],Outside Imaging [address] [place] [address] System, Provider Not In, PhD Partners [address] [address] Social History Tobacco Use Types Packs/Day Years Used Date Smoking Tobacco: Never Assessed Sex and Gender Information Value Date Recorded Sex Assigned at Not on file Gender Identity Not on file Sexual Orientation Not on file documented as of this encounter Plan of Treatment Not on file documented as of this encounter Results * Mammogram Outside (No Interpretation) (11/14/2018 12:00 AM EST) Narrative SYSTEMGENERATED, DOCUMENTATION - 08/24/2019 10:42 AM EDT This study is for PACS storage only and not for interpretation. Provider Not In System PhD IMG OUTSIDE I MAGING W/OUT INTERPRETATION documented in this encounter Visit Diagnoses Not on filedocumented in this encounter Care Teams Certified Medicine Aide Relationship Specialty Start Date End Date Jennifer Sherwood MD [address] [place] [address] [email or web address] PCP - General Family Medicine 08/17/19 01/18/21 Sophie Noble MD [address] [place] [address] PCP - General Family Medicine 01/19/21 documented as of this encounter Additional Source Comments The information contained in this document represents components of the legal health record. It is not the complete legal health record.[facility]
--- OUTSIDE RECORDS SUMMARY | 2025-03-30 16:01 | XMS_ITS | Clinical Summary ---
Author Organization [facility] Address [address] [place] [phone] Phone Care Team Providers Care Charge Weigher Name Role Phone Sophie Noble MD Primary Care Provider Family History Medical History Relation Comments Breast cancer Sister HALF SISTER/SAME MOM Relation Status Comments Sister Social History Tobacco Use Types Packs/Day Years Used Date Smoking Tobacco: Never Assessed Education Answer Date Recorded Are you interested in more education? Not on paul e 03/29/2023 Are you concerned about learning? Not on file 03/29/2023 No 03/29/2023 No 03/29/2023 Digital Access Answer Date Recorded No 04/30/2023 No 04/30/2023 No 04/30/2023 Reliable internet access at home? Not on file 04/30/2023 Device with a working camera? Not on file Sex and Gender Information Value Date Recorded Sex Assigned at Not on file Gender Identity Not on file Sexual Orientation Not on file Plan of Treatment Not on file Medical Devices Not on file Care Teams Charge Weigher Relationship Specialty Start Date End Date Sophie Noble MD [address] [place] [phone] PCP - General Family Medicine 01/19/21 Additional Source Comments The information contained in this document represents components of the legal health record. It is not the complete legal health record.[facility]
--- OUTSIDE RECORDS SUMMARY | 2025-03-30 16:01 | XMS_ITS ---
Author Name 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 ProblemAct [facility] Vitamin D deficiency active 2014-04-06 ProblemAct [facility] Hyperlipidemia active 2014-03-13 ProblemAct [facility] Type 2 diabetes mellitus without complication active 2015-08-30 ProblemAct [facility] Anxiety state active 2014-03-13 ProblemAct [facility] Sleep apnea active 2014-03-13 ProblemAct [facility] Depressive disorder active 2014-03-13 ProblemAct [facility] Immunizations Vaccine Date Source Lot Number Status Pneumococcal Conjugate 13-Valent 01/07/2018 [facility] [id number] completed Influenza (AFLURIA/FLUZONE) Inactivated/Split Quadrivalent with Preservative IM 09/06/2017 [facility] completed Influenza Inactivated/Split Preservative Free IM 09/27/2016 [facility] [id number] completed Tdap 09/27/2016 [facility] [id number] completed Influenza Inactivated/Split Preservative Free IM 08/30/2015 [facility] [id number] completed Influenza Inactivated/Split Preservative Free IM 09/06/2014 [facility] [id number] completed Influenza Inactivated/Split Preservative Free IM 09/02/2013 [facility] [id number] completed Zoster Vaccine Live/Attenuated (Zostavax) 03/20/2013 [facility] [id number] completed Influenza Inactivated/Split Preservative Free IM 09/16/2012 [facility] [id number] completed Influenza Inactivated/Split Preservative Free IM 08/29/2011 [facility] [id number] completed Influenza Inactivated/Split Preservative Free IM 08/10/2010 [facility] [id number] completed H1N1 Inj 12/19/2009 [facility] [id number] completed Influenza Inactivated/Split Preservative Free IM 08/29/2009 [facility] [id number] completed Influenza Inactivated/Split Preservative Free IM 08/31/2008 [facility] [id number] completed Influenza Inactivated/Split Preservative Free IM 09/04/2007 [facility] [id number] completed TD Preservative Free 01/03/2007 [facility] comp leted
--- OUTSIDE RECORDS SUMMARY | 2025-03-30 16:01 | XMS_ITS | Encounter Summary ---
Author Organization [facility] Address [address] [place] [phone] Care Team Providers Care Boat Person Name Role Phone Narcisa Cook MD Primary Care Provider Reason for Visit * Reason Comments Medication Refill Encounter Details Date Type Department Care Team ([facility] st Contact Info) Description 09/27/[address] [phone] Jessie Woodson APRN [address] [phone] Type 2 diabetes mellitus without complication, without [...] encounter Miscellaneous Notes * Telephone Encounter - Peyton Galdamez LPN - 10/01/2016 9:26 AM EDT Patient requesting 90 day supply sent per her insurance request documented in this encounter Plan of Treatment Not on file documented as of this encounter Visit Diagnoses Diagnosis Type 2 diabetes mellitus without complication, without long-term current use of insulin (HCC) documented in this encounter Care Teams Boat Person Relationship Specialty Start Date End Date Narcisa Cook MD [address] [place] [address] PCP - General 08/15/15 08/12/19 documented as of this encounter
--- OUTSIDE RECORDS SUMMARY | 2025-03-30 16:01 | XMS_ITS | Encounter Summary ---
Author Organization [facility] Address [address] [place] [address] Care Team Providers Care Customer Strategy Manager Name Role Phone Narcisa Cook MD Primary Care Provider [phone] Encounter Details Date Type Department Care Team (Late st Contact Info) Description 08/27/2015 Scanned Document [address] [phone] Provider, Generic Social History Tobacco Use Types Packs/Day Years Used Date Smoking Tobacco: Never Comments:caffeine use/ 1 cup of coffee daily, 1 cup of tea, occasional chocolate Alcohol Use Standard Drinks/Week Comments Not Asked 0 (1 standard drink = 0.6 oz pure alcohol) alcohol use/ rare intake of alcohol Comments Unknown Sex and Gender Information Value Date Recorded Sex Assigned at Not on file Legal Sex Female 5:27 PM EDT Gender Identity Not on file Sexual Orientation Not on file documented as of this encounter Plan of Treatment Not on file documented as of this encounter Visit Diagnoses Not on filedocumented in this encounter Care Teams Customer Strategy Manager Relationship Specialty Start Date End Date Narcisa Cook MD [address] [place] [phone] PCP - General 08/15/15 08/12/19 documented as of this encounter
--- OUTSIDE RECORDS SUMMARY | 2025-03-30 16:01 | XMS_ITS | Encounter Summary ---
Author Organization [facility] Address [address] [place] [address] Care Team Providers Care Container Repairer Name Role Phone Narcisa Cook MD Primary Care Provider Reason for Visit * Reason Comments Medication Refill Encounter Details Date Type Department Care Team (Late st Contact Info) Description 01/20/[address] [phone] Narcisa Cook MD [address] [place] [phone] Type 2 diabetes mellitus without complication, without [...] (HCC) documented in this encounter Care Teams Container Repairer Relationship Specialty Start Date End Date Narcisa Cook MD [address] [place] [address] PCP - General 08/15/15 08/12/19 documented as of this encounter
--- OUTSIDE RECORDS SUMMARY | 2025-03-30 16:01 | XMS_ITS | Encounter Summary ---
Author Organization [facility] Address [address] [place] [address] Care Team Providers Care Spinner Iron Name Role Phone Narcisa Cook MD Primary Care Provider Encounter Details Date Type Department Care Team (Late st Contact Info) Description 2016 Scanned Document [address] [phone] Provider, Generic Social History Tobacco Use Types [...] on filedocumented in this encounter Care Teams Spinner Iron Relationship Specialty Start Date End Date Narcisa Cook MD [address] [place] [phone] PCP - General 08/15/15 08/12/19 documented as of this encounter
--- OUTSIDE RECORDS SUMMARY | 2025-03-30 16:01 | XMS_ITS | Encounter Summary ---
Author Organization [facility] Address [address] [place] [address] Care Team Providers Care Shoe Lining Fitter Name Role Phone Narcisa Cook MD Primary Care Provider [phone] Encounter Details Date Type Department Care Team (Late st Contact Info) Description 01/07/2018 Scanned Document [address] [phone] Provider, Generic Social History Tobacco Use Types [...] on filedocumented in this encounter Care Teams Shoe Lining Fitter Relationship Specialty Start Date End Date Narcisa Cook MD [address] [place] [phone] PCP - General 08/15/15 08/12/19 documented as of this encounter
--- OUTSIDE RECORDS SUMMARY | 2025-03-30 16:01 | XMS_ITS | Encounter Summary ---
Author Organization [facility] Address [address] [address] Phone Care Team Providers Care Wrapper And Preserver Name Role Phone Jennifer Sherwood MD Primary Care Provider + Sophie Noble MD Primary Care Provider Encounter Details Date Type Department Care Team (Late st Contact Info) Description 08/24/2019 Ancillary Orders [facility],Outside Imaging [address] [place] [address] System, Provider Not In, [facility] [address] [address] Social History Tobacco Use Types Packs/Day Years Used Date Smoking Tobacco: Never Assessed Sex and Gender Information Value Date Recorded Sex Assigned at Not on file Gender Identity Not on file Sexual Orientation Not on file documented as of this encounter Plan of Treatment Not on file documented as of this encounter Results * Mammogram Outside (No Interpretation) (11/13/2017 12:00 AM EST) Narrative SYSTEMGENERATED, DOCUMENTATION - 08/24/2019 10:43 AM EDT This study is for PACS storage only and not for interpretation. Provider Not In System PhD IMG OUTSIDE I MAGING W/OUT INTERPRETATION documented in this encounter Visit Diagnoses Not on filedocumented in this encounter Care Teams Wrapper And Preserver Relationship Specialty Start Date End Date Jennifer Sherwood MD [address] [place] [phone] [email or web address] PCP - General Family Medicine 08/17/19 01/18/21 Sophie Noble MD [address] [place] [address] PCP - General Family Medicine 01/19/21 documented as of this encounter Additional Source Comments The information contained in this document represents components of the legal health record. It is not the complete legal health record.[facility]
[2025-04-21 13:21] VITALS: BMI 26.3
[2025-04-23 07:45] VITALS: BMI 25.9
[2025-04-23 07:51] VITALS: BP 137/68; PULSE 78; RESP 17; TEMP 36.8; O2SAT 98
[2025-04-23] MEDS: Lactated Ringers 1,000 ML 100 ML IVCONT (08:03)
[2025-04-23 08:05] LABS: Glucose, Whole Blood 173 mg/dL (60-115)
--- NOTE | 2025-04-23 08:45 | HO.ANESPROP2 ---
Documented by User: April Chong NP 04/22/25 09:19 HPI - Anesthesia Eval Consult details Narrative: 74yo F for Colonoscopy Anesthesia Pre-Procedure Meds Is the patient on any of the following meds?: GLP1/DPP4 PMFSH Past Medical History Medical History Depression Anxiety Diabetes Elevated cholesterol Surgical History Surgical History H/O colonoscopy History of left hip replacement Hx of arthroscopy of right knee History of bladder suspension procedure Social History Social History Patient Tobacco Use Status: Never used Tobacco Smoked in Last 30 Days: No e-Cigarette/Vaping Use: Never Used Have you been hit, kicked, punched, or otherwise hurt by someone within the past year? If so, by whom?: No Are you DNR?: No Advance Directives: No Advance Directives Information Provided: Yes Meds Allergies Allergy/AdvReac Type Severity Reaction Status Date / Time nitrofurantoin Allergy Mild Rash Verified 04/23/25 08:05 [From Macrobid] Penicillins Allergy Mild Rash Verified 04/23/25 08:05 Sulfa (Sulfonamide Allergy Mild Rash Verified 04/23/25 08:05 Antibiotics) Home Medications ?Medication ?Instructions ?Recorded ?Confirmed ?Last Taken ?Type alprazolam 0.5 mg tablet 0.5 mg PO DAILY PRN anxiety 04/21/25 04/23/25 Unknown History atorvastatin 10 mg tablet 10 mg PO DAILY 04/21/25 04/23/25 Unknown History citalopram 20 mg tablet 20 mg PO DAILY 04/21/25 04/23/25 Unknown History glimepiride 2 mg tablet 2 mg PO BID 04/21/25 04/23/25 Unknown History lisinopril 2.5 mg tablet 2.5 mg PO DAILY 04/21/25 04/23/25 Unknown History metformin 500 mg tablet 500 mg PO BID 04/21/25 04/23/25 Unknown History sitagliptin phosphate 100 mg 100 mg PO DAILY 04/21/25 04/23/25 04/21/25 History tablet (Januvia) Exam Height,Weight and Vital Signs: Height 5 ft 4 in Weight 69.4 kg Assessment and Plan Assessment Anesthesia Assessment: Chart Reviewed Documented by User: Yanet Green DO 04/23/25 08:48 HPI - Anesthesia Eval Anesthesia Pre-Procedure Meds Is the patient on any of the following meds?: GLP1/DPP4 PMFSH Past Medical History Medical History Depression Anxiety Diabetes Elevated cholesterol Family History Family history of problems with anesthesia: No Surgical History Surgical History H/O colonoscopy History of left hip replacement Hx of arthroscopy of right knee History of bladder suspension procedure History of Problems with Anesthesia: No Social History Social History Patient Tobacco Use Status: Never used Tobacco Smoked in Last 30 Days: No e-Cigarette/Vaping Use: Never Used Have you been hit, kicked, punched, or otherwise hurt by someone within the past year? If so, by whom?: No Are you DNR?: No Advance Directives: No Advance Directives Information Provided: Yes Meds Allergies Allergy/AdvReac Type Severity Reaction Status Date / Time nitrofurantoin Allergy Mild Rash Verified 04/23/25 08:05 [From Macrobid] Penicillins Allergy Mild Rash Verified 04/23/25 08:05 Sulfa (Sulfonamide Allergy Mild Rash Verified 04/23/25 08:05 Antibiotics) Home Medications ?Medication ?Instructions ?Recorded ?Confirmed ?Last Taken ?Type alprazolam 0.5 mg tablet 0.5 mg PO DAILY PRN anxiety 04/21/25 04/23/25 Unknown History atorvastatin 10 mg tablet 10 mg PO DAILY 04/21/25 04/23/25 Unknown History citalopram 20 mg tablet 20 mg PO DAILY 04/21/25 04/23/25 Unknown History glimepiride 2 mg tablet 2 mg PO BID 04/21/25 04/23/25 Unknown History lisinopril 2.5 mg tablet 2.5 mg PO DAILY 04/21/25 04/23/25 Unknown History metformin 500 mg tablet 500 mg PO BID 04/21/25 04/23/25 Unknown History sitagliptin phosphate 100 mg 100 mg PO DAILY 04/21/25 04/23/25 04/21/25 History tablet (Januvia) Exam Exam Date and Time: 04/23/25 0845 Height,Weight and Vital Signs: Height 5 ft 4 in Weight 69.4 kg Vital Signs Temperature 98.3 F 04/23/25 07:51 Pulse Rate 78 04/23/25 07:51 Respiratory Rate 17 04/23/25 07:51 Blood Pressure 137/68 04/23/25 07:51 Pulse Oximetry 98 04/23/25 07:51 Oxygen Delivery Method Room Air 04/23/25 07:51 Temperature 98.3 F 04/23/25 07:51 Pulse Rate 78 04/23/25 07:51 Respiratory Rate 17 04/23/25 07:51 Blood Pressure 137/68 04/23/25 07:51 Pulse Oximetry 98 04/23/25 07:51 Oxygen Delivery Method Room Air 04/23/25 07:51 Airway Mallampati Class: III TM Dist: >3cm Neck ROM: Full Loose/Missing/Broken Teeth: No (patient denies any loose or broken teeth) Heart: S1S2 Lungs: CTAB Assessment and Plan Assessment Anesthesia Assessment: Anesthesia Plan Discussed and Chart Reviewed Final Anesthetic Review Family History of Problems with Anesthesia: No History of Problems with Anesthesia: No NPO: Yes ASA Class: II Final Preanesthetic Review: No Changes in Pt Med Stat, Meds/Allgs Chart Reviewed, Consent Obtained/Reviewed and Anes Risks/Benef Reviewed Patient Risk: Low Procedure Risk: Low Anesthetic Plan Anesthetic Plan: MAC: and Agree w/ Assess. and Plan Disposition: Standard PACU
--- NOTE | 2025-04-23 09:12 | MHC.SHP ---
Pre-Procedural Eval Section A - 24 Hr Update-Section A only Date of Service: 04/23/25 Section B - Complete if H&P > 30 days Chief Complaint: screening Details of Present Illness: see H&P no changes Relevant Family History (Specify if Yes): No Relevant Social History: None Present Medications: see Short Stay Collaborative assessment Medical History: No relevant PMH History of Previous Operations: No relevant previous surgery Allergies: Allergies Allergy/AdvReac Type Severity Reaction Status Date / Time nitrofurantoin Allergy Mild Rash Verified 04/23/25 08:05 [From Macrobid] Penicillins Allergy Mild Rash Verified 04/23/25 08:05 Sulfa (Sulfonamide Allergy Mild Rash Verified 04/23/25 08:05 Antibiotics) Review of Systems Sugical H&P ROS: Negative: Constitution, Cardiovascular, Respiratory, Neurological, Psychiatric, Hem-Onc, Allergic/Immunologic, Gastrointestinal, Genitourinary, Musculoskeletal, Integumentary, Endocrine and Eyes/Ears/Nose/Throat Exam Surgical H&P Exam: Normal: HEENT, Normal: Heart, Normal: Lungs, Normal: Extremities, Normal: Abdomen, Normal: Skin and Normal: Neurological Plan Diagnosis/Plan: Unchanged I have reviewed the history and physical and performed a pertinent physical examination on my patient. No changes have occurred unless specified. Time Spent With Patient Time: Total time managing care of this patient today ____ minutes.
[2025-04-23 10:15] VITALS: BP 144/76; PULSE 77; RESP 16; TEMP 36.7; O2SAT 95
[2025-04-23 10:33] VITALS: BP 143/78; PULSE 77; RESP 18; TEMP 36.7; O2SAT 97
--- NOTE | 2025-04-23 10:40 | OP_ITS ---
DATE OF SERVICE: 04/23/2025 SURGEON: Eleuterio Tong MD PREOPERATIVE DIAGNOSIS: POSTOPERATIVE DIAGNOSIS: PROCEDURE PERFORMED: ESTIMATED BLOOD LOSS: COMPLICATIONS: ANESTHESIA: ASSISTANTS: SPECIMENS: PROCEDURE: Colonoscopy to the cecum. INDICATION: Colon cancer screening. MEDICATIONS: Monitored anesthesia care. PROCEDURE DESCRIPTION: History and physical was performed. The risks and benefits of the procedure explained to the patient. Informed consent was obtained. The patient was placed in the left lateral decubitus position. A digital rectal exam was performed and was found to be normal. The Olympus pediatric video colonoscope was introduced into the rectum and advanced to the cecum. The cecum was identified by transillumination, palpation, and identification of the ileocecal valve. Examination was performed. The scope was removed. She tolerated the procedure well and was taken to Recovery in stable condition. FINDINGS: The terminal ileum was not examined. Abdominal wall pressure was used to assist in advancement of the scope. The patient was repositioned on her back as well. A single polyp in the right colon measuring less than 5 mm was identified and removed with biopsy forceps. This was sent for pathological examination. No other polyps were identified. There was mild sigmoid diverticulosis. Retroflexed examination showed some small internal hemorrhoids and hypertrophic anal papilla. IMPRESSION: Colon polyp. RECOMMENDATION: Follow up the biopsy results. MD MEGHAN Sotomayor/HIRAL / [id number]
== END 2025-04-23 10:51 | disposition home or self-care (01) ==
PROVIDERS: PCP Family Medicine; Visit Provider Internal Medicine Gastroenterology
PROC: 0DJD8ZZ Inspection of Lower Intestinal Tract, Via Natural or Artificial Opening Endoscopic (ICD-10-PCS; CPT 45378; principal; 2025-04-23 09:10)
DX: Z12.11 Encounter for screening for malignant neoplasm of colon (principal); Z80.0 Family history of malignant neoplasm of digestive organs; D12.2 Benign neoplasm of ascending colon; K57.30 Diverticulosis of large intestine without perforation or abscess without bleeding; K64.8 Other hemorrhoids; K62.89 Other specified diseases of anus and rectum; E78.00 Pure hypercholesterolemia, unspecified; E11.9 Type 2 diabetes mellitus without complications; F41.9 Anxiety disorder, unspecified; Z79.82 Long term (current) use of aspirin; Z79.84 Long term (current) use of oral hypoglycemic drugs; Z79.899 Other long term (current) drug therapy; Z88.0 Allergy status to penicillin; Z88.1 Allergy status to other antibiotic agents; Z88.2 Allergy status to sulfonamides; Z98.890 Other specified postprocedural states
CPT/HCPCS: 45380; 82947; 88305; J2003; J2704